=== PATIENT | female | born 1955 | race Two or more races ===

== ENCOUNTER 2019-11-21 13:07 | Emergency (ER) | payer MEDICARE, MEDICAID ==
[~2019-11-21] VITALS: Ht 165.1 cm; Wt 70.8 kg
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
--- NOTE | 2019-11-21 13:21 | NUR ---
SEEN AND EXAMINED BY .
[2019-11-21] MEDS ORDERED: BENA10TA74 PO (14:06)
[2019-11-21] MEDS ORDERED: PARO20TA7 PO (14:06)
[2019-11-21] MEDS ORDERED: ATOR40TA PO (14:06)
--- NOTE | 2019-11-21 14:20 | NUR ---
PT IS WHEELED TO CT SCAN VIA [facility].
[2019-11-21] MEDS ORDERED: PROPOFOL 20 ML IV ONE (14:22)
[2019-11-21] MEDS ORDERED: PROPOFOL 200 MG/20 ML VIAL IV ONE (14:30)
--- NOTE | 2019-11-21 14:35 | NUR ---
MODERATE SEDATION STARTED RT, MD AND RN AT BEDSIDE.
--- NOTE | 2019-11-21 14:43 | NUR ---
INTERFACE DESIGNER AT BEDSIDE FOR POST REDUCTION XRAY.
[2019-11-21] MEDS ORDERED: MORPHINE SULFATE INJ 4 MG/ML DISP.SYRIN ONE (15:00)
[2019-11-21] MEDS ORDERED: ONDANSETRON HCL/PF 4 MG/2 ML VIAL ONE (15:00)
[2019-11-21] MEDS ORDERED: ONDANSETRON HCL/PF 4 MG/2 ML VIAL IVP ONE (15:00)
[2019-11-21] MEDS ORDERED: MORPHINE SULFATE INJ 2 MG/ML DISP.SYRIN IV ONE (15:00)
[2019-11-21 15:40] VITALS: BP 116/55
--- NOTE | 2019-11-21 15:40 | NUR ---
Patient discharged to home in stable condition. Written and verbal after care instructions given. Patient verbalizes understanding of instruction.IV removed. Catheter intact and site benign. Pressure and 4x4 applied to site. No bleeding noted.
== END 2019-11-21 15:40 | disposition home or self-care (01) ==
LOC: ER 13:12
DX: S43.084A Other dislocation of right shoulder joint, initial encounter (principal); S70.02XA Contusion of left hip, initial encounter; S70.01XA Contusion of right hip, initial encounter; S50.01XA Contusion of right elbow, initial encounter; M54.2 Cervicalgia; R51 Headache; R07.89 Other chest pain; I10 Essential (primary) hypertension; E11.9 Type 2 diabetes mellitus without complications; E78.5 Hyperlipidemia, unspecified; Z79.899 Other long term (current) drug therapy; W11.XXXA Fall on and from ladder, initial encounter; Y93.89 Activity, other specified; Y92.89 Other specified places as the place of occurrence of the external cause; Y99.8 Other external cause status
CPT/HCPCS: 23650; 70450; 71045; 72125; 72170; 73020; 73030 ×2; 73080; 73502; 73503; 96374; 96375; 99152; 99285; J2270; J2405; J2704; G0500